=== PATIENT | female | born 1945 | race Hispanic/Latino ===

== ENCOUNTER 2018-12-05 18:41 | Emergency (ER) | payer OTHER ==
--- NOTE | 2018-12-05 19:09 | EDPHYS ---
Physician Documentation [facility] Name: Georgiana Kidd Age: 73 yrs Sex: Female : 1945 Arrival Date: 12/05/2018 Time: 18:43 Bed 18 Private MD: Gutierrez Miller ED Physician Benoit Villalpando HPI: 12/06 16:08 This 73 yrs old Female presents to ER via Ambulatory with complaints of snw Redness of Eye. 16:08 to the right eye. Onset: The symptoms/episode began/occurred suddenly, this morning. snw Duration: the symptoms are continuous. Associated signs and symptoms: Pertinent positives: None. Severity of symptoms: At their worst the symptoms were mild. The patient has not experienced similar symptoms in the past. It is unknown whether or not the patient has recently seen a physician. Historical: - Allergies: 12/05 18:46 No Known Allergies; sv - PMHx: 18:46 None; sv - PSHx: 18:46 left ankle; sv - Immunization history:: Adult Immunizations unknown. - Social history:: Smoking status: unknown. - Ebola Screening: : Patient negative for fever greater than or equal to 101.5 degrees Fahrenheit, and additional compatible Ebola Virus Disease symptoms. ROS: 12/06 16:06 Constitutional: Negative for fever, chills, and weight loss, ENT: Negative for injury, snw pain, and discharge, Neck: Negative for injury, pain, and swelling, Cardiovascular: Negative for chest pain, palpitations, and edema, Respiratory: Negative for shortness of breath, cough, wheezing, and pleuritic chest pain, Abdomen/GI: Negative for abdominal pain, nausea, vomiting, diarrhea, and constipation, Back: Negative for injury and pain, : Negative for injury, bleeding, discharge, and swelling, MS/Extremity: Negative for injury and deformity, Skin: Negative for injury, rash, and discoloration, Neuro: Negative for headache, weakness, numbness, tingling, and seizure. Eyes: Positive for itching, matting, redness, of the outer aspect of conjuctiva of right eye and inner aspect of conjuctiva of right eye. Exam: 12/05 19:18 Constitutional: This is a well developed, well nourished patient who is awake, alert, snw and in no acute distress. Head/Face: Normocephalic, atraumatic. ENT: Nares patent. No nasal discharge, no septal abnormalities noted. Tympanic membranes are normal and external auditory canals are clear. Oropharynx with no redness, swelling, or masses, exudates, or evidence of obstruction, uvula midline. Mucous membranes moist. Neck: Trachea midline, no thyromegaly or masses palpated, and no cervical lymphadenopathy. Supple, full range of motion without nuchal rigidity, or vertebral point tenderness. No Meningismus. Chest/axilla: Normal chest wall appearance and motion. Nontender with no deformity. No lesions are appreciated. Cardiovascular: Regular rate and rhythm with a normal S1 and S2. No gallops, murmurs, or rubs. Normal PMI, no JVD. No pulse deficits. Respiratory: Lungs have equal breath sounds bilaterally, clear to auscultation and percussion. No rales, rhonchi or wheezes noted. No increased work of breathing, no retractions or nasal flaring. Abdomen/GI: Soft, non-tender, with normal bowel sounds. No distension or tympany. No guarding or rebound. No evidence of tenderness throughout. Back: No spinal tenderness. No costovertebral tenderness. Full range of motion. Skin: Warm, dry with normal turgor. Normal color with no rashes, no lesions, and no evidence of cellulitis. MS/ Extremity: Pulses equal, no cyanosis. Neurovascular intact. Full, normal range of motion. Neuro: Awake and alert, GCS 15, oriented to person, place, time, and situation. Cranial nerves II-XII grossly intact. Motor strength 5/5 in all extremities. Sensory grossly intact. Cerebellar exam normal. Normal gait. Psych: Awake, alert, with orientation to person, place and time. Behavior, mood, and affect are within normal limits. Eyes: Periorbital structures: erythema, that is mild, on the medial canthus of right eye and lateral canthus of right eye, Pupils: no acute changes, normal size, Extraocular movements: no acute changes, Conjunctiva: injected, in the right eye, Corneas: are normal. Vital Signs: 18:46 BP 151 / 79; Pulse 70; Resp 16; Temp 97.9; Pulse Ox 97% ; Weight 58.06 kg; Height 5 ft. sv 4 in. (162.56 cm); Pain 0/10; 18:46 Body Mass Index 21.97 (58.06 kg, 162.56 cm) MDM: 18:48 Patient medically screened. snw 19:19 Data reviewed: vital signs, nurses notes. Data interpreted: Pulse oximetry: on room air snw is 97 %. Interpretation: normal. Counseling: I had a detailed discussion with the patient and/or guardian regarding: the historical points, exam findings, and any diagnostic results supporting the discharge/admit diagnosis, the presence of at least one elevated blood pressure reading (>120/80) during this emergency department visit, the need for outpatient follow up, to return to the emergency department if symptoms worsen or persist or if there are any questions or concerns that arise at home. Special discussion: Based on the history and exam findings, there is no indication for further emergent testing or inpatient evaluation. I discussed with the patient/guardian the need to see the opthamologist for further evaluation of the symptoms. Administered Medications: 19:15 Drug: Tobramycin Ointment (0.3 %) 1 inches Route: Ophthalmic; Site: right eye; jd3 19:21 Follow up: Response: Medication administered at discharge. jd3 Disposition: 12/06 08:23 Co-signature as Attending Physician, Benoit Villalpando MD I agree with the assessment and velia plan of care. Disposition: 12/05/18 19:08 Discharged to Home. Impression: Conjunctivitis. - Condition is Stable. - Discharge Instructions: Bacterial Conjunctivitis. - Prescriptions for TOBRAMYCIN OPTHALMIC OINTMENT - instill 0.5 inch by OPHTHALMIC route 3 times per day for 7 days; 1 Container. - Medication Reconciliation Form, Thank You Letter, Antibiotic Education, Prescription Opioid Use form. - Follow up: Augusta Carrillo MD; When: 1 - 2 days; Reason: Recheck today's complaints, Continuance of care, Re-evaluation by your physician. Signatures: Karol Thrasher RN RN sv Anderson, Corey, MD MD cha Therrien, Shelly, BREAST SURGEON-C BREAST SURGEON-Csnw Milo Gutierrez RN RN jd3 Corrections: (The following items were deleted from the chart) 12/05 19:21 19:08 12/05/2018 19:08 Discharged to Home. Impression: Conjunctivitis. Condition is jd3 Stable. Forms are Medication Reconciliation Form, Thank You Letter, Antibiotic Education, Prescription Opioid Use. Follow up: Augusta Carrillo; When: 1 - 2 days; Reason: Recheck today's complaints, Continuance of care, Re-evaluation by your physician. snw
--- NOTE | 2018-12-05 19:09 | ER ---
Nurse's Notes [facility] Name: Georgiana Kidd Age: 73 yrs Sex: Female : 1945 Arrival Date: 12/05/2018 Time: 18:43 Bed 18 Private MD: Gutierrez Miller Diagnosis: Conjunctivitis Presentation: 12/05 18:45 Presenting complaint: Patient states: right eye redness, itching, "white stuff coming sv out" started this morning. Transition of care: patient was not received from another setting of care. Onset of symptoms was December 05, 2018. Care prior to arrival: None. 18:45 Method Of Arrival: Ambulatory sv 18:45 Acuity: TREVIN 5 sv 19:10 Risk Assessment: Do you want to hurt yourself or someone else? Patient reports no jd3 desire to harm self or others. Initial Sepsis Screen: Does the patient meet any 2 criteria? No. Patient's initial sepsis screen is negative. Does the patient have a suspected source of infection? No. Patient's initial sepsis screen is negative. Historical: - Allergies: 18:46 No Known Allergies; sv - PMHx: 18:46 None; sv - PSHx: 18:46 left ankle; sv - Immunization history:: Adult Immunizations unknown. - Social history:: Smoking status: unknown. - Ebola Screening: : Patient negative for fever greater than or equal to 101.5 degrees Fahrenheit, and additional compatible Ebola Virus Disease symptoms. Screenin:09 Abuse screen: Denies threats or abuse. Nutritional screening: No deficits noted. jd3 Tuberculosis screening: No symptoms or risk factors identified. Fall Risk Ambulatory Aid- None/Bed Rest/Nurse Assist (0 pts). Gait- Normal/Bed Rest/Wheelchair (0 pts) Mental Status- Oriented to own ability (0 pts). Total Montoya Fall Scale indicates No Risk (0-24 pts). Assessment: 19:07 General: Appears in no apparent distress. uncomfortable, Behavior is calm, cooperative, jd3 appropriate for age. Pain: Complains of pain in right eye Quality of pain is described as aching. Neuro: Level of Consciousness is awake, alert, obeys commands, Oriented to person, place, time, situation, Appropriate for age. Cardiovascular: Denies chest pain, Capillary refill < 3 seconds Patient's skin is warm and dry. Respiratory: Airway is patent Respiratory effort is even, unlabored, Respiratory pattern is regular, symmetrical, Denies shortness of breath. GI: No signs and/or symptoms were reported involving the gastrointestinal system. : No signs and/or symptoms were reported regarding the genitourinary system. EENT: Eyes redness noted to right eye.. Reports itching to right eye.. Derm: Skin is intact, Skin is dry, Skin is normal, Skin temperature is warm. Musculoskeletal: Circulation, motion, and sensation intact. Range of motion: intact in all extremities. Vital Signs: 18:46 BP 151 / 79; Pulse 70; Resp 16; Temp 97.9; Pulse Ox 97% ; Weight 58.06 kg; Height 5 ft. sv 4 in. (162.56 cm); Pain 0/10; 18:46 Body Mass Index 21.97 (58.06 kg, 162.56 cm) sv ED Course: 18:43 Patient arrived in ED. mr 18:44 Gutierrez Miller MD is Private Physician. mr 18:45 Triage completed. sv 18:46 Arm band placed on. sv 18:47 [facility]dal[facility]uelas [facility]C [facility]. snw 18:47 Benoit Villalpando MD is Attending Physician. snw 19:07 Milo Gutierrez RN is Primary Nurse. jd3 19:08 Augusta Carrillo MD is Referral Physician. snw 19:10 Patient has correct armband on for positive identification. Bed in low position. Call jd3 light in reach. Side rails up X 1. Adult w/ patient. 19:20 No provider procedures requiring assistance completed. Patient did not have IV access jd3 during this emergency room visit. Administered Medications: 19:15 Drug: Tobramycin Ointment (0.3 %) 1 inches Route: Ophthalmic; Site: right eye; jd3 19:21 Follow up: Response: Medication administered at discharge. jd3 Outcome: 19:08 Discharge ordered by . snw 19:20 Discharged to home ambulatory, with family. jd3 19:20 Condition: stable 19:20 Discharge instructions given to patient, family, Instructed on discharge instructions, follow up and referral plans. medication usage, Demonstrated understanding of instructions, follow-up care, medications, Prescriptions given X 1. 19:21 Patient left the ED. jd3 Signatures: Karol Thrasher, RN RN Magdalena Jones, SEAFOOD PACKER-C SEAFOOD PACKER-Csnw Peña, Pari mr Milo Gutierrez, RUPA GOODE jd3
[2018-12-05] MEDS ORDERED: TOBRAMYCIN SULF 0.3% OPTH OINT ONE (19:24)
== END 2018-12-05 19:21 | disposition home or self-care (01) ==
LOC: ER 18:41
DX: H10.9 Unspecified conjunctivitis (principal)
CPT/HCPCS: 99283

== ENCOUNTER 2022-05-03 07:39 | Day surgery (SDC) | payer OTHER ==
[2022-04-28 11:57] LABS: Hematocrit 39.6 % (36.0-45.0); MCV 88.5 fL (80-100); MPV 8.1 fL (7.6-11.3); RBC Red Blood Cell Count 4.48 M/uL (3.86-4.86)
[2022-04-28 12:09] LABS: Potassium 3.9 mmol/L (3.5-5.1)
[2022-04-28 12:28] LABS: Protime INR 1.17
[2022-04-28 15:23] LABS: Urine Clarity Clear (Clear); Urine Color Yellow (Yellow)
[2022-04-28 15:24] LABS: Urine Bilirubin Negative (Negative); Urine Blood Negative (Negative); Urine Glucose Negative (Negative); Urine Protein Negative (Negative)
[2022-04-29 14:18] LABS: SARS-CoV-2 Antigen Rapid Res Negative (Negative)
[~2022-05-03 07:39] MED LIST: CEFAZOLIN SODIUM 1 GM/VIAL ONE; FENTANYL CITR 100 MCG/2 ML ONE; LIDOCAINE 1% MPF 5 ML VIAL ONE; MIDAZOLAM HCL 2 MG/2 ML INJ ONE; NA CHLORIDE 0.9% 100 ML ONE; ONDANSETRON 4 MG/2 ML VIAL ONE; ROCURONIUM 50 MG/5 ML VIAL IV ONE; propofoL 200 MG/20 ML VIAL IV ONE
[2022-05-03] MEDS ORDERED: CEFAZOLIN 2 GM IN 0.9% NACL 2 GM/100 ML BAG ONE (08:06)
[2022-05-03] MEDS ORDERED: Ringers Lactate 1,000 ML IV ONE (08:06)
[2022-05-03] MEDS ORDERED: SCOPOLAMINE HYDROBROMIDE PATCH TD ONE (08:07)
[2022-05-03] MEDS: VASOPRESSIN 20 UNIT/ML VIAL ONE ×2 (08:22→09:33)
[2022-05-03] MEDS ORDERED: ONDANSETRON 4 MG/2 ML VIAL IV PRN (09:23)
[2022-05-03] MEDS ORDERED: PROMETHAZINE INJ 25 MG/ML AMP IV PRN (09:23)
[2022-05-03] MEDS ORDERED: MORPHINE 2 MG/ML SYR IV PRN (09:23)
[2022-05-03] MEDS ORDERED: Phenylephrine HCl 10 MG/ML 1 ML VIAL ONE (09:29)
[2022-05-03] MEDS ORDERED: dexAMETHasone 4 MG/ML VIAL ONE (09:29)
[2022-05-03] MEDS ORDERED: KETOROLAC 30 MG/ML INJ ONE (09:29)
[2022-05-03] MEDS ORDERED: ONDANSETRON 4 MG/2 ML VIAL ONE (09:29)
[2022-05-03] MEDS ORDERED: Ringers Lactate 1,000 ML IV SCH (10:00)
[2022-05-03] MEDS ORDERED: GLYCOPYRROLATE 0.2 MG/ML SYR ONE (10:12)
[2022-05-03] MEDS ORDERED: EPHEDRINE SULF 50 MG/ML VIAL ONE (10:13)
[2022-05-03] MEDS ORDERED: VECURONIUM 10 MG/VIAL IV ONE (11:02)
[2022-05-03] MEDS ORDERED: SUGAMMADEX SODIUM 200 MG/2 ML VIAL IV ONE (12:12)
--- NOTE | 2022-05-03 13:10 | P.BOP ---
Preoperative diagnosis: stage 3 uterovaginal prolapse, post defect, ROYAL Postoperative diagnosis: same+ post enterocele Primary procedure: B/L SSLF cervico-colpopexy+Ant wall biologic graft augmented repair Secondary procedure: posterior wall+enterocele repairs, perineorrhaphy, TO MUS cysto Data Entry Analyst: Paula Khan Estimated blood loss: 100 Specimen: none Findings: 0/+4/+5/5/mod/7/0/0/+1, post enterocele Anesthesia: General Complications: None Drain(s): Urinary catheter Implants: RAMÓN sling, coloplast biologic graft Transferred to: Recovery Room Condition: Good
[2022-05-03] MEDS: HYDROMORPHONE HCL 1 MG/ML INJ ONE ×2 (13:16→13:28)
[2022-05-03 14:37] VITALS: BMI 23.0
[2022-05-04] MEDS: ACETAMINOPHEN 500 MG TAB PO PRN ×2 (02:20→07:52)
[2022-05-04 06:24] LABS: Absolute Lymphocytes (CBC) 1.9 K/uL (0.7-4.9); Hematocrit 30.4 % (36.0-45.0); Lymphocytes % 16.3 % (15.3-44.8); MCV 90.4 fL (80-100); RBC Red Blood Cell Count 3.36 M/uL (3.86-4.86)
[2022-05-04 07:59] VITALS: BP 122/59
[2022-05-04] MEDS ORDERED: AMLODIPINE 5 MG TAB PO SCH (09:00)
[2022-05-04] MEDS ORDERED: VALSARTAN PO SCH (09:00)
[2022-05-04] MEDS ORDERED: [UNRECOGNIZED DRUG - OTHER] PO SCH (09:00)
[2022-05-04] MEDS ORDERED: HYDROCHLOROTHIAZIDE PO SCH (09:00)
[2022-05-04] MEDS ORDERED: VITAMIN D 5,000 UNIT CAP PO SCH (09:00)
[2022-05-04] MEDS ORDERED: VALSARTAN 160 MG TAB PO SCH (09:00)
[2022-05-04] MEDS ORDERED: hydroCHLOROthiazide 12.5 MG CAP PO SCH (09:00)
[2022-05-04 11:15] VITALS: TEMP 97.6; O2SAT 99
--- NOTE | 2022-05-05 07:04 | OP ---
Date of Procedure: 05/03/2022 Surgeon: Kate Mcneil MD Pre Fabricator: Paula Keita. Preoperative Diagnoses: Stage III uterovaginal prolapse, posterior defect, and stress urinary incont inence. Postoperative Diagnoses: Stage IV uterovaginal prolapse, posterior enterocele, posterior wall defect , and stress urinary incontinence. Procedures Performed: Bilateral sacrospinous ligament fixation, cervical colpopexy, anterior wall re pair with biologic graft augmentation, posterior wall and posterior enterocele repair, perineorrhaphy , mid urethral sling, transobturator, and cystoscopy. Ebl: 100. Specimens: None. Pop Q 0+ 4+ 55, moderate 700+ 1 posterior enterocele seen. Cystoscopy negative. Strong jets of urin e from both ureteric orifices and no evidence of any trauma or foreign body. Anesthesia: General endotracheal. Complications: No complications. Drains: Liu catheter. Implants: RAMÓN sling and Coloplast biologic graft. Disposition: Transferred to the recovery room in stable condition. Indications: The patient is a 76-year-old female with symptomatic vaginal prolapse and voiding dysfu nction. She was evaluated last year and this year again for symptomatic prolapse. I have discussed about cystoscopy. Urodynamics were all performed and we discussed all the alternatives including pes eyad, observation with Kegel, which she had already done and her prolapse had progressed and become s ignificantly more symptomatic despite that and surgical repair including a hysterectomy with a sacral colpopexy and alternatively vaginal repair with a colpopexy and anterior-posterior repairs using a b iologic graft. After understanding all the benefits and risks and alternatives of all these procedur e. She wanted to proceed with a vaginal repair. On transvaginal ultrasound, the uterus and ovaries had no other pathology. So, uterine preservation as there was no pathology discussed and the patient consented. Description Of Procedure: She was brought to the OR, re-consented, her and her had questions were answered including her son to their satisfaction. Then, she was taken back to OR and placed in supine fashion on the operating table. 2 g of Ancef was given. SCDs were placed. After anesthesia was given, she was placed in a dorsal lithotomy position. Vulva, vagina, perineum, and medial thigh s were all prepped and draped in a sterile fashion. Liu was placed to drain the bladder and retrac milana superiorly after being clamped. The Pop Q was done as above in the anterior wall from the UVJ al l the way to the level of the cervix, was marked the midline, and dilute vasopressin was injected 30 cc. The midline incision was made. Dissection was performed to separate the bladder and the underly ing connective tissue from the overlying epithelial tissue. After entering the plane and getting int o the paravaginal space on the right and the left, pararectal space was accessed. The left side was much easier and much clearer dissection to find the sacrospinous ligament and clean it up. On the le ft paravaginal wall as well, similar dissection was performed on the right side. There was very mini mal tissue that was still left at the level of the spine despite clearing, but the sacrospinous ligam ent was able to be well palpated and paravaginal white line was also cleaned up. Using the Capio, dissection was carried all the way to the level of the cervix proximally and distall y to the UVJ. Two Prolene sutures were taken, 1 on each side mid ligament were placed, 1 on each either sides, then PDS on the Capio was taken and placed on the white line at least 2.5 cm away from the ischial spine on the right side and 2 cm away from the left side. Three Prolene sutures were placed on the cervix, 1 in the midline and 1 on either sides and PDS sutures, 1 in the center, either on midline at the di stal UVJ onto remnants of the connective tissue present over here. These were all held on clamps. T hen, the biologic graft was fashioned, it was an 8.6 graft and was cut to 8 x 6 x 5, which was the di stal and into a trapezoid. This was soaked according to package directions and brought in. The prox imal attachment to the cervix was stitched with a House needle and then tied down with the Prolene pond tures 2-0 and then the PDS sutures at the distal center were attached the graft. Then, the sacrospin ous sutures were attached with using a tevin stitch and then the PDS lateral wall sutures were attac hed to the graft after pulling the Prolene suture to the sacrospinous seeing where it would be in [place] ropriate location for placement of the PDS on the graft. These were passed and held. Then, the ante rior vaginal wall was started with the closure by using a 2-0 Vicryl suture at proximal end near the cervix bringing the cervical tissue back together and then the vaginal epithelium. After closure abo ut 2 cm then, we went on to tie the sacrospinous sutures and the right paravaginal suture. On the le ft, the paravaginal suture was cut, so I had to replace the PDS suture on the white line and back ont o the graft, this was tied down. There was excellent lift and support of the bladder and the apex on the lateral wall. The vaginal epithelium was slightly trimmed about half a centimeter on each side only in the middle mid segment of the bladder and this was closed with the help of 2-0 Vicryl that wa s started already proximally all the way to the end. Mid urethral area was picked up with 2 Allis clamps, injected with dilute vasopressin, and 1.5 cm inc ision was made in the mid urethral area. Going onto the fascial layer, the track was created towards the ipsilateral obturator space hugging the inferior pubic ramus at a 45-degree angle. The track wa s expanded. Similar dissection performed on the left side as well. Then, the wing guide was taken, sling was loaded and passed out after it was soaked according to package directions. At the exit poi nt was 2 cm lateral to the groin fold centimeter above the level of the transverse line drawn at the level of the external meatus avoiding the adductor longus tendon. The spike exit points were marked already and incised with a 15 blade and then the mesh was retrieved on both sides in a similar fashion. Tensioning was performed with an Allis clamp in the center to b ring up a loop of the mesh and allowing it to lie right against the urethra and then the mesh was onc e it was tensioned properly set flush with the skin on both groins. The Allis clamp was opened up and let the mesh lay where it was supposed to, which was tension-free a nd optimally opened up without any cord like rolling. After thorough irrigation, the closure was performed with the help of a 3-0 Vicryl in a continuous ru nning fashion. Liu was removed. Cystoscopy was performed. Normal jets of urine from both ureteri c orifices. No evidence of any trauma or foreign body from either the areas of the sutures or the sl ing. The bladder was re-catheterized and retracted superiorly and attached to Liu bag. Attention was directed to the posterior repair. The remnants of hymen were picked up on both sides. It was clear that the perineal body was not intact, but there was not a perineocele. A triangular incision was placed on the perineum and then another triangular incision both bases touc lore each other at the hymen were placed on the epithelium. Then, the epithelium was deepithelialize d in both areas. Then, the underlying connective tissue was dissected on the posterior vaginal wall as well as the perineal body structures on the lateral wall and on the perineum. Then, the posterior enterocele was dissected all the way on the top, closed with the help of a 3-0 Monocryl in a pursest ring fashion. Then, reconstruction of the perineal body was done, which decreased the genital hiatus to about 3.5 cm. Interrupted 2-0 Vicryl sutures in 2 layers of 4 and 4 sutures on the deeper layer and 3 on the next superficial layer. There was excellent perineal body that was rebuilt and this was attached with 2-0 PDS to the distal posterior fascia, which was also plicated. Then, vaginal epithe lium would slightly trim to prevent dog-ear, but no further trimming was done and it was closed with the help of 2-[address] to the hymen and the 3-0 Vicryl down the subcutaneous fashion and subcuticular fashion tied down at the level of the hymen. Rectal exam was performed, was negative and the sutures of the sacrospinous were palpable, but not th rough the epithelium on the right side and on the left side much less palpable. I did not feel dary rned that there was any trauma to the rectum. Vaginal packing was done and Dermabond placed to close the skin incisions. Instrument, needle, and s ponge counts were correct at the end of the case. The patient was recovered from anesthesia and take n to PACU in stable condition. She was kept overnight for a voiding trial, and once packing and Fole y were removed as she was not able to void very well and so had a significant PVR, so she was catheterized and discharged home. She will b e back in 4 days for a voiding trial. MAE/SOCORRO Voice ID: [id number] Report ID: [id number]
[2022-05-06] MEDS ORDERED: ESTRADIOL 10 MCG VAG SCH (17:00)
== END 2022-05-04 10:45 | disposition home or self-care (01) ==
LOC: OR 07:39 → 2ND-WC 09:23 → OR 05-04 10:45
PROVIDERS: ATTEND Obstetrics & Gynecology
PROC: 0JQC0ZZ Repair Pelvic Region Subcutaneous Tissue and Fascia, Open Approach (ICD-10-PCS; 2022-05-03)
PROC: 0HQ9XZZ Repair Perineum Skin, External Approach (ICD-10-PCS; 2022-05-03)
PROC: 0TSD0ZZ Reposition Urethra, Open Approach (ICD-10-PCS; 2022-05-03)
PROC: 0USG7ZZ Reposition Vagina, Via Natural or Artificial Opening (ICD-10-PCS; principal; 2022-05-03 08:30)
DX: N81.2 Incomplete uterovaginal prolapse (principal); N95.2 Postmenopausal atrophic vaginitis; N81.6 Rectocele; E55.9 Vitamin D deficiency, unspecified; I10 Essential (primary) hypertension; N39.3 Stress incontinence (female) (male); Z20.822 Contact with and (suspected) exposure to COVID-19
CPT/HCPCS: 85025 ×2; 80048; 36415 ×3; 86900; 86850; 85610; 86901; 85730; 81003; 87811; 57282; 57250; 57288; J2704; J1100; J2550; J2370; J2250; J3010; J2270; J1170; J0690 ×2; J7120 ×3; J2405 ×3

== ENCOUNTER 2025-06-27 11:59 | Inpatient (IN) | payer OTHER ==
[2025-06-27] MEDS ORDERED: ONDANSETRON 4 MG/2 ML VIAL ONE ×3 (12:41→17:31)
[2025-06-27] MEDS ORDERED: NA CHLORIDE 0.9% 500 ML ONE (12:42)
[2025-06-27] MEDS ORDERED: FAMOTIDINE 20 MG/2 ML VIAL IV ONE (12:42)
[2025-06-27] MEDS ORDERED: FENTANYL CITR 100 MCG/2 ML ONE ×3 (12:42→16:52)
[2025-06-27 12:55] LABS: Absolute Lymphocytes (CBC) 1.5 K/uL (0.7-4.9); Hematocrit 44.2 % (36.0-45.0); Hemoglobin 14.9 g/dL (12.0-15.0); MCH 30.1 pg (27.0-35.0); MCHC 33.7 g/dL (32.0-36.0); MCV 89.4 fL (80-100); MPV 8.6 fL (7.6-11.3); Nucleated RBC Absolute Count 0.0 (0-0); Nucleated Red Blood Cells % 0.1 % (0-0); RBC Red Blood Cell Count 4.94 M/uL (3.86-4.86); White Blood Count 7.70 thou/uL (4.3-10.9)
[2025-06-27 13:02] LABS: PT Prothrombin Time 13.2 SECONDS (10-13.0); Protime INR 1.17
--- NOTE | 2025-06-27 13:13 | RAD REPORT ---
EXAM: Chest Single View HISTORY: 80 years Female ABDOMINAL DISTENTION COMPARISON: No prior exams FINDINGS: LUNGS/PLEURA: The lungs are clear. No pleural effusions or pneumothorax. No pulmonary edema. CARDIAC/MEDIASTINUM: The cardiac silhouette is within normal limits. UPPER ABDOMEN: No significant abnormality. BONES: No acute abnormality. LINES/TUBES/OTHER: N/A IMPRESSION: No evidence of acute cardiopulmonary disease.
[2025-06-27 13:15] LABS: ALT/SGPT 20.0 U/L (13-56); AST/SGOT 19.0 U/L (15-37); Albumin 3.4 g/dL (3.4-5.0); Albumin/Globulin Ratio 0.8 (1.1-1.8); Alkaline Phosphatase 68.0 U/L (45-117); Anion Gap 11.9 mEq/L (5.0-15.0); BUN Blood Urea Nitrogen 13.0 mg/dL (7-18); Bilirubin Indirect, Calculated 0.5 mg/dL (0.2-0.8); Globulin 4.4 g/dL (2.3-3.5); Glucose Level 108.0 mg/dL (74-106); Lipase 22.0 U/L (13-75); Magnesium 2.1 mg/dL (1.6-2.4); NT PRO-BNP 99.0 pg/mL (<450); Potassium 3.9 mEq/L (3.5-5.1); Troponin High Sensitivity 3.2 pg/mL (<58.9)
--- NOTE | 2025-06-27 13:46 | RAD REPORT ---
EXAMINATION: CT ABDOMEN AND PELVIS WITH CONTRAST CLINICAL INDICATION: ABD PAIN TECHNIQUE: CT abdomen and pelvis was performed, after the administration of IV contrast, as [facility]. Axial, sagittal and coronal reconstructions were obtained. One or more of the following dose reduction techniques were used: Automated exposure control, adjustment of the mA and k V according to patient size, and iterative reconstruction. Unless otherwise specified, incidental findings do not require dedicated imaging follow-up. COMPARISON: No prior exam. FINDINGS: LOWER CHEST: The visualized lung bases are clear. LIVER: Mild fatty liver is present. No focal lesion or biliary dilatation is seen. Grossly unremark able gallbladder. SPLEEN: Normal size. No focal lesion. PANCREAS: No mass, ductal dilation, or catie-pancreatic fluid. ADRENALS: Normal; no mass. KIDNEYS: Normal size and contour. No hydronephrosis. GASTROINTESTINAL TRACT: Several mildly thickened and dilated left lower quadrant small bowel loops. S mall left inguinal hernia is present containing a short segment of the small intestine without fluid or evidence of incarceration. APPENDIX: Normal appendix. LYMPH NODES: No lymphadenopathy. MUSCULOSKELETAL: Moderate compression deformity of L2, favored to be chronic but age indeterminate. ADDITIONAL FINDINGS: Small fat-containing umbilical hernia. IMPRESSION: Several mildly dilated and thickened small bowel loops in the left lower quadrant with small left ing uinal hernia containing a short segment of small intestine. This may indicate low-grade partial small bowel obstruction caused by this hernia.
--- NOTE | 2025-06-27 14:42 | EDPHYS ---
Physician Documentation [facility] Name: Georgiana Kidd Age: 80 yrs Sex: Female : 1945 Arrival Date: 06/27/2025 Time: 11:59 Bed 6 Private MD: VJ Physician Benoit Villalpando HPI: 06/27 14:32 This 80 yrs old Female presents to ER via Ambulatory with complaints of velia Abdominal Pain - LLQ, Nausea. 14:32 The patient presents to the emergency department with nausea, abdominal pain, of the velia left lower quadrant. Onset: The symptoms/episode began/occurred this morning, today. Possible causes: unknown. The symptoms are aggravated by movement, pressure, The symptoms are alleviated by nothing. remaining still. Associated signs and symptoms: Pertinent positives: abdominal pain, nausea. Severity of symptoms: At their worst the symptoms were moderate in the emergency department the symptoms are unchanged. The patient has not experienced similar symptoms in the past. Historical: - Allergies: 12:25 No Known Allergies; iw - Home Meds: 12:25 None [Active]; iw - PMHx: 12:25 None; iw - PSHx: 12:25 bladder lift; iw - Immunization history:: Adult Immunizations not up to date. - Infectious Disease History:: Denies. - Social history:: Smoking status: Patient denies any tobacco usage or history of. ROS: 14:33 Constitutional: Negative for fever, chills, and weight loss, Eyes: Negative for injury, velia pain, redness, and discharge, ENT: Negative for injury, pain, and discharge, Neck: Negative for injury, pain, and swelling, Cardiovascular: Negative for chest pain, palpitations, and edema, Respiratory: Negative for shortness of breath, cough, wheezing, and pleuritic chest pain, Back: Negative for injury and pain, : Negative for injury, bleeding, discharge, and swelling, MS/Extremity: Negative for injury and deformity, Skin: Negative for injury, rash, and discoloration, Neuro: Negative for headache, weakness, numbness, tingling, and seizure, Psych: Negative for depression, anxiety, suicide ideation, homicidal ideation, and hallucinations, Allergy/Immunology: Negative for hives, rash, and allergies, Endocrine: Negative for neck swelling, polydipsia, polyuria, polyphagia, and marked weight changes, Hematologic/Lymphatic: Negative for swollen nodes, abnormal bleeding, and unusual bruising, 14:33 Abdomen/GI: Positive for abdominal pain, nausea, of the left lower quadrant, Exam: 14:33 Constitutional: This is a well developed, well nourished patient who is awake, alert, velia and in no acute distress. Head/Face: Normocephalic, atraumatic. Eyes: Pupils equal round and reactive to light, extra-ocular motions intact. Lids and lashes normal. Conjunctiva and sclera are non-icteric and not injected. Cornea within normal limits. Periorbital areas with no swelling, redness, or edema. ENT: Nares patent. No nasal discharge, no septal abnormalities noted. Tympanic membranes are normal and external auditory canals are clear. Oropharynx with no redness, swelling, or masses, exudates, or evidence of obstruction, uvula midline. Mucous membranes moist. Neck: Trachea midline, no thyromegaly or masses palpated, and no cervical lymphadenopathy. Supple, full range of motion without nuchal rigidity, or vertebral point tenderness. No Meningismus. Chest/axilla: Normal chest wall appearance and motion. Nontender with no deformity. No lesions are appreciated. Cardiovascular: Regular rate and rhythm with a normal S1 and S2. No gallops, murmurs, or rubs. Normal PMI, no JVD. No pulse deficits. Respiratory: Lungs have equal breath sounds bilaterally, clear to auscultation and percussion. No rales, rhonchi or wheezes noted. No increased work of breathing, no retractions or nasal flaring. Back: No spinal tenderness. No costovertebral tenderness. Full range of motion. Female : Normal external genitalia. Skin: Warm, dry with normal turgor. Normal color with no rashes, no lesions, and no evidence of cellulitis. MS/ Extremity: Pulses equal, no cyanosis. Neurovascular intact. Full, normal range of motion., bilateral aka Neuro: Awake and alert, GCS 15, oriented to person, place, time, and situation. Cranial nerves II-XII grossly intact. Motor strength 5/5 in all extremities. Sensory grossly intact. Cerebellar exam normal. Normal gait. Psych: Awake, alert, with orientation to person, place and time. Behavior, mood, and affect are within normal limits. 14:33 ECG was reviewed by the Attending Physician. Vital Signs: 12:24 BP 167 / 83; Pulse 65; Resp 16; Pulse Ox 98% ; Weight 54.88 kg; Height 5 ft. 3 in. ; iw Pain 8/10; 12:48 BP 175 / 83; Pulse 72; Resp 16; Pulse Ox 99% on R/A; ar8 14:30 BP 158 / 83; Pulse 62; Resp 16 S; Pulse Ox 99% on R/A; ar8 15:34 BP 144 / 85; Pulse 63; Resp 19; Pulse Ox 98% on R/A; iw 16:00 BP 96 / 77; Pulse 61; Resp 14; Pulse Ox 98% on R/A; ar8 16:15 Pain 1/10; ar8 12:24 Body Mass Index 21.43 (54.88 kg, 160.02 cm) iw 12:24 Pain Scale: Adult iw 16:15 Pain Scale: Adult ar8 MDM: 12:14 Medical Screening Exam initiated velia 14:34 Differential diagnosis: Nonspecific abd pain, gastritis, diverticulitis, viral velia gastroenteritis, gastroenteritis, bowel obstruction, diverticulitis, Herpes Zoster, non-specific abd pain, pancreatitis, Peptic Ulcer Disease, Pyelonephritis, Ureterolithiasis, urinary tract infection. Data reviewed: vital signs, nurses notes, lab test result(s), EKG, radiologic studies, CT scan, plain films. Consideration of Admission/Observation Patient was admitted/placed on observation. Escalation of care including admission/observation considered. I considered the following discharge prescriptions or medication management in the emergency department Medications were administered in the Emergency Department. See MAR. Independent interpretation of the following test(s) in the Emergency Department EKG: See my EKG interpretation above. Test considered but Not performed: Ultrasound NO ABD USG. Care significantly affected by the following chronic conditions: DIOGENES HX. 06/27 12:16 Order name: Basic Metabolic Panel; Complete Time: 14:19 [facility] 06/27 12:16 Order name: CBC with Diff; Complete Time: 14:19 velia 06/27 12:16 Order name: LFT's; Complete Time: 14:19 velia 06/27 12:16 Order name: Magnesium; Complete Time: 14:19 velia 06/27 12:16 Order name: NT PRO-BNP; Complete Time: 14:19 [facility] 06/27 12:16 Order name: PT-INR; Complete Time: 14:19 velia 06/27 12:16 Order name: Troponin HS; Complete Time: 14:19 velia 06/27 12:16 Order name: Lipase; Complete Time: 14:19 06/27 12:16 Order name: UA Rfx Jorge Cult if indicated 06/27 16:27 Order name: CBC with Automated Diff EDMS 06/27 16:27 Order name: CBC with Automated Diff EDMS 06/27 16:27 Order name: CBC with Automated Diff EDMS 06/27 16:27 Order name: Comprehensive Metabolic Panel EDMS 06/27 16:27 Order name: Comprehensive Metabolic Panel EDMS 06/27 16:27 Order name: Comprehensive Metabolic Panel EDMS 06/27 16:27 Order name: Magnesium EDMS 06/27 16:27 Order name: Magnesium EDMS 06/27 12:16 Order name: XRAY Chest (1 view); Complete Time: 14:19 velia 06/27 12:16 Order name: CT Abd/Pelvis - IV Contrast Only; Complete Time: 14:19 [facility] 06/27 12:16 Order name: EKG; Complete Time: 12:16 velia 06/27 12:16 Order name: Cardiac monitoring; Complete Time: 13:45 [facility] 06/27 12:16 Order name: EKG - Nurse/Tech; Complete Time: 13:45 [facility] 06/27 12:16 Order name: IV Saline Lock; Complete Time: 13:45 [facility] 06/27 12:16 Order name: Labs collected and sent; Complete Time: 13:45 [facility] 06/27 12:16 Order name: O2 Per Protocol; Complete Time: 13:45 [facility] 06/27 12:16 Order name: O2 Sat Monitoring; Complete Time: 13:45 [facility] 06/27 14:32 Order name: NPO; Complete Time: 15:03 [facility] EC:33 Rate is 65 beats/min. Rhythm is regular. QRS [place] is Normal. NC interval is normal. QRS velia interval is normal. QT interval is normal. No Q waves. T waves are Normal. No ST changes noted. Clinical impression: NSR w/ Non-specific ST/T Changes and No evidence of ischemia. Interpreted by me. Reviewed by me. Administered Medications: 12:50 Drug: Famotidine IVP 20 mg IVP once; dilute with 10 mL 0.9% NaCl; give over 2 minutes ar8 Route: IVP; Site: right antecubital; 13:30 Follow up: Response: No adverse reaction ar8 12:50 Drug: NS 0.9% IV 500 ml 500 ml IV at 1 bolus once; to be given as a bolus over 30 ar8 minutes Volume: 500 ml; Route: IV; Rate: 1 bolus; Site: right antecubital; 13:30 Follow up: Response: No adverse reaction; IV Status: Completed infusion; IV Intake: ar8 500ml 12:51 Not Given (Patient Refused): fentanyl (pf)25 mcg IVP once ar8 12:52 Not Given (Patient Refused): ondansetron 4 mg IVP once; over 2 minutes ar8 15:15 Drug: Piperacillin-Tazobactam IVPB 3.375 grams IVPB once over 60 mins; (mix in NS 100 ar8 mL) Route: IVPB; Infused Over: 60 mins; Site: right antecubital; 15:51 Follow up: Response: No adverse reaction; IV Status: Completed infusion; IV Intake: db 100ml 15:15 Drug: NS 0.9% IV 1000 ml IV at 125 ml/hr once Route: IV; Rate: 125 ml/hr; Site: right ar8 antecubital; 16:30 Follow up: Response: No adverse reaction; IV Status: IV converted to saline lock; IV ar8 Intake: 136ml 15:38 Drug: fentaNYL (PF) IVP 25 mcg IVP once Route: IVP; Site: right antecubital; db 16:15 Follow up: Pain 1/10 Adult; Response: No adverse reaction; Pain is decreased ar8 15:38 Drug: Ondansetron IVP 4 mg IVP once; over 2 minutes Route: IVP; Site: right antecubital;db 16:29 Follow up: Response: No adverse reaction; Nausea is decreased ar8 16:29 Not Given (Patient Refused): fentanyl (pf)25 mcg IVP once ar8 Disposition Summary: 06/27/25 14:41 Hospitalization Ordered Notes: Hospitalization Status: Inpatient Admission velia Provider: Antonio Romo cha Location: Telemetry/MedSurg (Inpatient) velia Condition: Stable velia Problem: new velia Symptoms: are unchanged velia Bed/Room Type: Standard velia Room Assignment: velia Diagnosis - Abdominal tenderness velia - Unilateral inguinal hernia, with obstruction, without gangrene, not specified as velia recurrent - Nausea velia - Other and unspecified intestinal obstruction - LEFT INCARCERATED INGUINAL HERNIA velia Forms: - Medication Reconciliation Form velia - SBAR form velia - Leadership Thank You Letter velia Critical care time excluding procedures: 15:48 Critical care time: Bedside Care: 20 minutes, Consultation: 10 minutes, Family velia Intervention: 5 minutes. Total time: 35 minutes Signatures: Dispatcher [employer] EDBenoit Mehta MD MD cha Williams, Irene, RN RN iw Benton, Danielle, RN RN db Rodriguez, Andrea, RN RN ar8
--- NOTE | 2025-06-27 14:42 | ER ---
Nurse's Notes [facility] Name: Georgiana Kidd Age: 80 yrs Sex: Female : 1945 Arrival Date: 06/27/2025 Time: 11:59 Bed 6 Private MD: Diagnosis: Abdominal tenderness;Unilateral inguinal hernia, with obstruction, without gangrene, not specified as recurrent;Nausea;Other and unspecified intestinal obstruction-LEFT INCARCERATED INGUINAL HERNIA Presentation: 06/27 12:24 Chief complaint: Patient states: LLQ pain X 1 hour, no vomiting, no diarrhea, feels iw like a bad cramp. Coronavirus screen: At this time, the client does not indicate any symptoms associated with coronavirus-19. Ebola Screen: No symptoms or risks identified at this time. Initial Sepsis Screen: Does the patient meet any 2 criteria? No. Patient's initial sepsis screen is negative. Does the patient have a suspected source of infection? No. Patient's initial sepsis screen is negative. Risk Assessment: Do you want to hurt yourself or someone else? Patient reports no desire to harm self or others. Onset of symptoms was June 27, 2025. 12:24 Method Of Arrival: Ambulatory iw 12:24 Acuity: TREVIN 3 iw Historical: - Allergies: 12:25 No Known Allergies; iw - Home Meds: 12:25 None [Active]; iw - PMHx: 12:25 None; iw - PSHx: 12:25 bladder lift; iw - Immunization history:: Adult Immunizations not up to date. - Infectious Disease History:: Denies. - Social history:: Smoking status: Patient denies any tobacco usage or history of. Screenin:48 [facility] [place] ED Fall Risk Assessment (Adult) History of falling in the last 3 months, ar8 including since admission No falls in past 3 months (0 pts) Confusion or Disorientation No (0 pts) Intoxicated or Sedated No (0 pts) Impaired Gait No (0 pts) Mobility Assist Device Used No (0 pt) Altered Elimination No (0 pt) Score/Fall Risk Level 0 - 2 = Low Risk Oriented to surroundings, Maintained a safe environment. Abuse screen: Denies threats or abuse. Nutritional screening: No deficits noted. Tuberculosis screening: No symptoms or risk factors identified. Assessment: 12:50 General: Appears in no apparent distress. Behavior is calm, cooperative. Pain: ar8 Complains of pain in left lower quadrant Quality of pain is described as crampy. 12:50 Neuro: Level of Consciousness is awake, alert, obeys commands, Oriented to person, ar8 place, time, situation. Cardiovascular: No deficits noted. Respiratory: Airway is patent Respiratory effort is even, unlabored, Respiratory pattern is regular, symmetrical. GI: Abdomen is flat, Abd is soft Abdomen is tender to palpation in left lower quadrant. : No signs and/or symptoms were reported regarding the genitourinary system. EENT: No signs and/or symptoms were reported regarding the EENT system. Derm: No signs and/or symptoms reported regarding the dermatologic system. 15:34 Reassessment: Patient appears in no apparent distress at this time. Dr. Grey at iw bedside to speak with pt and family. Vital Signs: 12:24 BP 167 / 83; Pulse 65; Resp 16; Pulse Ox 98% ; Weight 54.88 kg; Height 5 ft. 3 in. ; iw Pain 8/10; 12:48 BP 175 / 83; Pulse 72; Resp 16; Pulse Ox 99% on R/A; ar8 14:30 BP 158 / 83; Pulse 62; Resp 16 S; Pulse Ox 99% on R/A; ar8 15:34 BP 144 / 85; Pulse 63; Resp 19; Pulse Ox 98% on R/A; iw 16:00 BP 96 / 77; Pulse 61; Resp 14; Pulse Ox 98% on R/A; ar8 16:15 Pain 1/10; ar8 12:24 Body Mass Index 21.43 (54.88 kg, 160.02 cm) iw 12:24 Pain Scale: Adult iw 16:15 Pain Scale: Adult ar8 ED Course: 12:14 Patient arrived in ED. cj3 12:14 Benoit Villalpando MD is Attending Physician. velia 12:25 Triage completed. iw 12:26 Arm band placed on. iw 12:37 Harley Wilkinson, RUPA is Primary Nurse. ar8 12:48 Bed in low position. Call light in reach. Side rails up X2. Provided Education on: plan ar8 of care. 12:48 No provider procedures requiring assistance completed. ar8 13:01 XRAY Chest (1 view) In Process Unspecified. EDMS 13:07 Inserted saline lock: 20 gauge in right antecubital area, using aseptic technique. pm7 Blood collected. Flushed with 10 mL NS. 13:[address] via stretcher. ar8 13:39 CT Abd/Pelvis - IV Contrast Only In Process Unspecified. EDMS 13:[address] Patient moved back from CT. ar8 14:40 Antonio Romo MD is Hospitalizing Provider. velia 16:30 Patient admitted, IV remains in place. ar8 16:33 UA Rfx Jorge Cult if indicated Sent. ar8 Administered Medications: 12:50 Drug: Famotidine IVP 20 mg IVP once; dilute with 10 mL 0.9% NaCl; give over 2 minutes ar8 Route: IVP; Site: right antecubital; 13:30 Follow up: Response: No adverse reaction ar8 12:50 Drug: NS 0.9% IV 500 ml 500 ml IV at 1 bolus once; to be given as a bolus over 30 ar8 minutes Volume: 500 ml; Route: IV; Rate: 1 bolus; Site: right antecubital; 13:30 Follow up: Response: No adverse reaction; IV Status: Completed infusion; IV Intake: ar8 500ml 12:51 Not Given (Patient Refused): fentanyl (pf)25 mcg IVP once ar8 12:52 Not Given (Patient Refused): ondansetron 4 mg IVP once; over 2 minutes ar8 15:15 Drug: Piperacillin-Tazobactam IVPB 3.375 grams IVPB once over 60 mins; (mix in NS 100 ar8 mL) Route: IVPB; Infused Over: 60 mins; Site: right antecubital; 15:51 Follow up: Response: No adverse reaction; IV Status: Completed infusion; IV Intake: db 100ml 15:15 Drug: NS 0.9% IV 1000 ml IV at 125 ml/hr once Route: IV; Rate: 125 ml/hr; Site: right ar8 antecubital; 16:30 Follow up: Response: No adverse reaction; IV Status: IV converted to saline lock; IV ar8 Intake: 136ml 15:38 Drug: fentaNYL (PF) IVP 25 mcg IVP once Route: IVP; Site: right antecubital; db 16:15 Follow up: Pain / Adult; Response: No adverse reaction; Pain is decreased ar8 15:38 Drug: Ondansetron IVP 4 mg IVP once; over 2 minutes Route: IVP; Site: right antecubital;db 16:29 Follow up: Response: No adverse reaction; Nausea is decreased ar8 16:29 Not Given (Patient Refused): fentanyl (pf)25 mcg IVP once ar8 Medication: 12:48 VIS not applicable for this client. ar8 Intake: 13:30 IV: 500ml; Total: 500ml. ar8 15:51 IV: 100ml; Total: 600ml. db 16:30 IV: 136ml; Total: 736ml. ar8 Outcome: 14:41 Decision to Hospitalize by Provider. velia 16:30 Admitted to OR accompanied by nurse, via wheelchair, with chart, ar8 16:30 Condition: stable 16:30 Discharge instructions given to reason for admission. ar8 16:36 Patient left the ED. ar8 Signatures: Dispatcher [employer] EDAL Benoit Villalpando MD MD cha Williams, Irene, RN RN iw Benton, Danielle, RN RN db Johnson, Celeste cj3 Harley Wilkisnon RN RN ar8 Susan Abbott pm7
[2025-06-27] MEDS ORDERED: NA CHLORIDE 0.9% 100 ML ONE (14:49)
[2025-06-27] MEDS ORDERED: PIPERACIL/TAZO 3.375 GM VIAL IV ONE (14:50)
[2025-06-27] MEDS ORDERED: NA CHLORIDE 0.9% 1,000 ML ONE (14:50)
[2025-06-27] MEDS ORDERED: ONDANSETRON 4 MG/2 ML VIAL IV PRN (16:23)
[2025-06-27] MEDS: LIDOCAINE HCL/EPINEPHRINE 20 ML MDV ONE (16:30)
[2025-06-27] MEDS ORDERED: MORPHINE 2 MG/ML SYR IV PRN (16:30)
[2025-06-27 16:39] LABS: Sqamous Epithelial <5 /HPF (None Seen); Urine Crystals Unidentified Few /HPF (None Seen); Urine Culture Reflex Order NOT NEEDED; Urine Microscopic Reflex YN ORDER UMIC
--- NOTE | 2025-06-27 16:50 | P.HP ---
Certification for Inpatient Patient admitted to: Inpatient With expected LOS: >2 Midnights Patient will require the following post-hospital care: None Practitioner: I am a practitioner with admitting privileges, knowledge of patient current condition, hospital course, and medical plan of care. Services: Services provided to patient in accordance with Admission requirements found in Title 42 Section 412.3 of the Code of Federal Regulations Patient History Date of Service: 06/27/25 Reason for admission: Abdominal pain/hernia History of Present Illness: Patient is an 80-year-old female with past medical history of hypertension (currently controlled without medications) and pre-diabetes who presents to the ED with sharp left lower quadrant pain accompanied by nausea x 1 day. Patient reports that as she was walking around at home she felt a sudden sharp pains in her stomach and when she went to sit down it did not go away. ED workup included CT abdomen pelvis with contrast which showed Several mildly dilated and thickened small bowel loops in the left lower quadrant with small left inguinal hernia containing a short segment of small intestine. This may indicate low- grade partial small bowel obstruction caused by this hernia. Surgery was consulted and patient admitted for surgical intervention of hernia at this time Allergies No Known Allergies Allergy (Verified 05/03/22 08:18) Home Medications: Amlodipine Besylate 5 mg PO DAILY 04/28/22 Cholecalciferol (Vitamin D3) [Vitamin D 5,000 Iu Cap] 5,000 unit PO DAILY 04/28/22 Estradiol [Yuvafem] 10 mcg VG SEECOM 04/28/22 Valsartan/Hydrochlorothiazide [Valsartan-Hctz 320-12.5 mg Tab] 1 tab PO DAILY 04/28/22 - Past Medical/Surgical History Diabetic: No -: HTN -: Arthritis -: Left Ankle Surgery -: Bladder Sling Surgery - Family History Father -: Cancer Notes: Prostate Cancer Mother -: Diabetes - Social History Alcohol use: No CD- Drugs: No Caffeine use: Yes Place of Residence: Home Review of Systems Gastrointestinal: Nausea, Abdominal Pain Physical Examination - Physical Exam General: Alert, In no apparent distress HEENT: Atraumatic, PERRLA, Mucous membr. moist/pink, EOMI, Sclerae nonicteric Neck: Supple, 2+ carotid pulse no bruit, No LAD, Without JVD or thyroid abnormality Cardiovascular: Regular rate/rhythm, Normal S1 S2 Capillary refill: <2 Seconds Gastrointestinal: Hypoactive, No ascites, Tenderness, Rebound Musculoskeletal: No tenderness Integumentary: No rashes Neurological: Normal gait, Normal speech, Normal strength at 5/5 x4 extr, Normal tone, Normal affect External genitalia: Deferred Rectal: Deferred - Studies Laboratory Data (last 24 hrs) 06/27/25 06/27/25 06/27/25 12:47 12:47 12:47 WBC 7.70 Hgb 14.9 Hct 44.2 Plt Count 212 PT 13.2 H INR 1.17 Sodium 139 Potassium 3.9 BUN 13 Creatinine 0.52 L Glucose 108 H Magnesium 2.1 Total Bilirubin 0.7 AST 19 ALT 20 Alkaline Phosphatase 68 Lipase 22 Assessment and Plan - Plan Patient is an 80-year-old female with no significant past medical history who presents to the ED with sharp left lower quadrant pain accompanied by nausea x 1 day. Abdomninal Pain Hernia - CT abdomen/pelvis: Several mildly dilated and thickened small bowel loops in the left lower quadrant with small left inguinal hernia containing a short segment of small intestine. This may indicate low- grade partial small bowel obstruction caused by this hernia. - WBC 7.70, continue to monitor CBC - Received IV fluids, Zosyn and Zofran while in the ED - Continue Zosyn for now - Surgeon Dr. Sellers consulted while in ED. Possible surgical intervention this afternoon - NPO for now - LR at 100mL/hr - Morphine 0.5mg q4h PRN for severe pain(Patient does not like to take IV pain meds) - IV Zofran PRN for nausea Hx of HTN - Continue to monitor blood pressure per unit protocol - Maintain good pain control - Previously taking amlodipine and valsartan/HCTZ however recently tapered off and reported monitoring blood pressure closely at home DVT PPx: SCDs for now pending surgical intervention Code Status: Full code Discharge Plan: Home Plan to discharge in: Greater than 2 days - Advance Directives Does patient have a Living Will: Yes Does patient have a Durable POA for Healthcare: Yes - Code Status/Comfort Care Code Status Assessed: Yes (Full code) Critical Care: No Time Spent Managing Pts Care (In Minutes): 37
[2025-06-27] MEDS ORDERED: SUCCINYLCHOLINE 200 MG/10 ML 200 MG/10 ML SYR IV ONE (16:52)
[2025-06-27] MEDS ORDERED: LIDOCAINE 1% MPF 5 ML VIAL ONE (16:52)
[2025-06-27] MEDS ORDERED: ROCURONIUM 50 MG/5 ML VIAL IV ONE (16:52)
[2025-06-27] MEDS: PIPER TAZO 3.375 GM in NA CHLORIDE 0.9% 100 ML IV SCH (17:00)
[2025-06-27] MEDS ORDERED: GLYCOPYRROLATE 0.2 MG/ML SYR ONE (17:45)
--- NOTE | 2025-06-27 17:49 | P.OP ---
Preoperative diagnosis: LEFT Inguinal Incarcerated Hernia Postoperative diagnosis: LEFT Femoral Incarcerated Hernia Primary procedure: Open LEFT Femoral Hernia Repair with mesh Anesthesia: GETA + Local Estimated blood loss: <5cc Specimen: None Findings: LEFT Femoral hernia with incarceration of bowel, no ischemia Complications: None Implants: Bard Perfix Medium Plug, Surgicel hemostatic sheet Transferred to: Recovery Room Condition: Good
[2025-06-27] MEDS ORDERED: HYDRALAZINE HCL 20 MG/ML VIAL ONE (17:54)
[2025-06-27] MEDS: SUGAMMADEX SODIUM 200 MG/2 ML VIAL IV ONE (17:57)
[2025-06-27 19:01] VITALS: BMI 21.4
--- NOTE | 2025-06-27 19:30 | CON ---
Date of Consultation: 06/27/2025 Brief History Of Present Illness: The patient is an 80-year-old female who comes in with a 1-day his tory of significant and severe left lower quadrant abdominal pain now radiating around the remainder of the abdomen associated with nausea and global abdominal pain. This began yesterday earlier in the day and it got progressively worse. As such, she came to the emergency room with the above-stated c omplaints. During her presentation, she noted that the pain got progressively worse and attempts at reduction were unsuccessful at this time. She had a CT scan also during her admission, which showed concerning findings. Past Medical History: Significant for vaginal prolapse and left ankle injury. Past Surgical History: Includes vaginal prolapse repair, Dr. Mcneil, and left ankle surgery. Medications: None. Allergies: NO KNOWN DRUG ALLERGIES. Review of Systems: Ten-point review of systems other than HPI, denies. Social History: She denies smoking, alcohol, or recreational drug use. Physical Examination: General: At the time of my examination, she is awake, alert, and oriented. Psychiatric: Appropriate and conversive. HEENT: She is normocephalic. Sclerae anicteric. Mucous membranes moist. Oropharynx clear. Neck: Supple without JVD. Chest: Normal to expansion and excursion. Cardiovascular: Regular rate and rhythm. Pulmonary: Clear to auscultation bilaterally. Abdomen: Soft with positive left lower quadrant tenderness to palpation. Global tenderness worse in the left lower quadrant where a palpable inguinal hernia which is not reducible was palpable at this point with the knuckle of small intestine. Extremities: No clubbing, cyanosis, or edema. Skin: Warm and dry. Laboratory Data: Revealed white blood cell count 7.7, hemoglobin is 14.9, hematocrit 44.2, platelet count is 212, neutrophils are 72%. PT 13.2, INR 1.17, sodium 139, potassium 3.9, chloride 104, carbo n dioxide 27, BUN 13, creatinine 0.52, glucose is 108, calcium is 9.7, magnesium 2.1, total bilirubin 0.7, direct component was 0.2, AST 19, ALT 20, alkaline phosphatase is 68, lipase is 22. She had a CT scan performed of the abdomen and pelvis which was officially read as: 1. Small fat containing umbilical hernia. 2. Several mildly dilated and thickened small bowel loops in the left lower abdomen with small left i nguinal hernia containing a short segment of small intestine may indicate a low-grade partial bowel o bstruction caused by this hernia. Assessment And Plan: This is an 80-year-old woman who comes in with signs and symptoms of incarcerat ed left inguinal hernia with small bowel contained. 1. IV fluid hydration. 2. Antibiotic coverage. 3. I explained the risks, benefits, and alternatives of open inguinal hernia repair on the left side, including but not limited to, bleeding, infection, damage to surrounding tissue, need for further op erative procedures, trouble with mesh or implanted device, blood clots, heart attacks, strokes, recur rence of the hernia, other unforeseen complications in the perioperative period. The patient display ed understanding of the above-stated plan and agreed to proceed as indicated. GUSTABO/SOCORRO Voice ID: [id number] Report ID: [id number]
[2025-06-27] MEDS ORDERED: MORPHINE 4 MG/ML SYR IV PRN (19:41)
[2025-06-27] MEDS: HYDROCODONE/APAP 5/325 MG TAB PO PRN (20:01)
[2025-06-27] MEDS: Ringers Lactate 1,000 ML IV SCH (20:01)
[2025-06-27 20:12] VITALS: O2SAT 94
--- NOTE | 2025-06-28 04:55 | OP ---
Date of Procedure: 06/27/2025 Surgeon: Yoan Grey MD, Preoperative Diagnosis: Left inguinal incarcerated hernia. Postoperative Diagnosis: Left femoral incarcerated hernia. Procedure Performed: Open left femoral hernia repair with mesh. Anesthesia: General endotracheal plus local 1% lidocaine with epinephrine. Estimated Blood Loss: Less than 5 mL. Specimen: None. Findings: Left femoral hernia (perivascular) with incarceration of bowel, no ischemic changes, and adipose tissue. Complications: None. Implants: Bard PerFix medium plug only and Surgicel hemostatic sheet, small size utilized. Disposition: Patient transferred to recovery room in good condition. Procedure In Detail: After informed consent was obtained, the patient was brought to the operating room, prepped and draped in the usual sterile fashion. After adequate anesthesia was achieved, I made a linear incision over an obvious bulge in the left inguinal region superior to the inguinal crease. I dissected down ultimately through structures and identified a large protruding object, which appeared to be near the femoral canal. As such, I dissected it circumferentially around through fascial planes, ultimately dissecting down to a fascial defect, which was appreciated just medial to the femoral vein. At this point, I was able to dissect free the tissues, returned the bowel which was pink and peristalsing in a normal fashion, which is only a very small portion of it, Valle consistency type back in the preperitoneal space and some adipose tissue, which was entrapped with it. After placing the patient in steep Trendelenburg position, she was relaxed. The defect was reasonably sized and I did not feel that a tissue repair would adequately close this defect as it was reasonably sizable. As such, I opted to bring in a Bard PerFix plug, placed it into the space at this area and secured it to the lateral aspect and superior aspect of the fascial planes and the periosteal fascia on the pubic tubercle medially and superiorly. I did not place stitches on the femoral vein side as the femoral vein and the artery were palpable and dilated at this time, but appeared intact. There was some small oozing in the area. I chose not to use electrocautery and placed a small piece of Surgicel, trimmed appropriately and placed around this area and pressure was held until hemostasis was achieved. It was irrigated several times with sterile saline. No additional hemostatics required and I left a piece of Surgicel in place at this point. I then closed the defect over the top of this using 3-0 Vicryl suture over the fascial plane through the tissue plane, ultimately closed the deep dermal skin plane with the same said 3-0 Vicryl suture and the skin was closed with a 4-0 Monocryl in a running fashion. Dermabond was placed over top. The patient tolerated the procedure without incident or complication and transferred to PACU in good condition. All counts were correct at the end of the case. GUSTABO/SOCORRO Voice ID: [id number] Report ID: [id number] MTDD
[2025-06-28 05:44] LABS: Absolute Lymphocytes (CBC) 0.7 K/uL (0.7-4.9); Hematocrit 36.8 % (36.0-45.0); Hemoglobin 12.7 g/dL (12.0-15.0); MCH 30.4 pg (27.0-35.0); MCHC 34.4 g/dL (32.0-36.0); MCV 88.4 fL (80-100); MPV 9.6 fL (7.6-11.3); Nucleated RBC Absolute Count 0.0 (0-0); Nucleated Red Blood Cells % 0.0 % (0-0); RBC Red Blood Cell Count 4.17 M/uL (3.86-4.86); White Blood Count 9.90 thou/uL (4.3-10.9)
[2025-06-28 06:03] LABS: Albumin 2.7 g/dL (3.4-5.0); Albumin/Globulin Ratio 0.8 (1.1-1.8); Alkaline Phosphatase 49 U/L (45-117); Anion Gap 9.6 mEq/L (5.0-15.0); BUN Blood Urea Nitrogen 11 mg/dL (7-18); Globulin 3.4 g/dL (2.3-3.5); Glucose Level 128 mg/dL (74-106); Magnesium 1.8 mg/dL (1.6-2.4); Potassium 3.6 mEq/L (3.5-5.1)
[2025-06-28 06:08] LABS: ALT/SGPT < 14 U/L (13-56); AST/SGOT < 10 U/L (15-37)
[2025-06-28 08:47] VITALS: BP 120/56; TEMP 98.1
[2025-06-28] MEDS: MAGNESIUM SULFATE 1 gm IVPB 1 GM/100 ML BAG IV ONE (09:00)
[2025-06-28] MEDS: POTASSIUM CL SA 10 MEQ TAB PO ONE (09:00)
[2025-06-28 09:19] LABS: Anisocytosis 1+; Blood Morphology Comment NOTED (NOT SEEN); Hypochromasia 1+; Toxic Granulation PRESENT; White Blood Cell Scan OK (OK)
--- NOTE | 2025-06-28 10:57 | P.DS ---
Admission Date: 06/27/25 Discharge Date: 06/28/25 Disposition: ROUTINE DISCHARGE Discharge Condition: GOOD Reason for Admission: Abdominal pain/hernia Brief History of Present Illness: Patient is an 80-year-old female with past medical history of hypertension (currently controlled without medications) and pre-diabetes who presented to the ED with sharp left lower quadrant pain accompanied by nausea x 1 day. Patient reported that as she was walking around at home she felt sudden sharp pains in her stomach and when she went to sit down it did not go away. ED workup included CT abdomen pelvis with contrast which showed several mildly dilated and thickened small bowel loops in the left lower quadrant with small left inguinal hernia containing a short segment of small intestine. This may indicate low- grade partial small bowel obstruction caused by this hernia. Surgery was consulted and patient was admitted for surgical intervention of hernia Hospital Course: Abdomninal Pain Hernia - CT abdomen/pelvis: Several mildly dilated and thickened small bowel loops in the left lower quadrant with small left inguinal hernia containing a short segment of small intestine. This may indicate low- grade partial small bowel obstruction caused by this hernia. - Received IV fluids, Zosyn and Zofran while inpatient - Surgeon Dr. Sellers completed open LEFT Femoral Hernia Repair with mesh - Passed flatulence and tolerating regular diet prior to discharge. Continue regular diet at home - Continue ASA 81mg daily at home, per recs of surgeon and post operative follow up within 2-3days Hx of HTN - Continue to monitor blood pressure at home - Previously taking amlodipine and valsartan/HCTZ however recently tapered off and reported monitoring blood pressure closely at home - Follow up with PCP Vital Signs/Physical Exam: Temp Pulse Resp BP Pulse Ox 98.1 F 75 12 120/56 L 95 06/28/25 08:00 06/28/25 08:00 06/28/25 08:00 06/28/25 08:00 06/28/25 08:00 General: Alert, In no apparent distress HEENT: Atraumatic, PERRLA, EOMI Neck: Supple, JVD not distended Respiratory: Clear to auscultation bilaterally, Normal air movement Cardiovascular: Regular rate/rhythm, Normal S1 S2 Capillary refill: <2 Seconds Gastrointestinal: Normal bowel sounds, Tenderness (mild to surgical site. No s/s of infection) Musculoskeletal: No tenderness Integumentary: No rashes Neurological: Normal speech, Normal tone, Normal affect External genitalia: Deferred Rectal: Deferred Laboratory Data at Discharge: WBC 9.90 thou/uL (4.3-10.9) 06/28/25 04:44 Hgb 12.7 g/dL (12.0-15.0) D 06/28/25 04:44 Hct 36.8 % (36.0-45.0) 06/28/25 04:44 Plt Count 182 thou/uL (152-406) 06/28/25 04:44 PT 13.2 SECONDS (10-13.0) H 06/27/25 12:47 INR 1.17 06/27/25 12:47 Sodium 138 mEq/L (136-145) 06/28/25 04:44 Potassium 3.6 mEq/L (3.5-5.1) 06/28/25 04:44 BUN 11 mg/dL (7-18) 06/28/25 04:44 Creatinine 0.49 mg/dL (0.55-1.02) L 06/28/25 04:44 Glucose 128 mg/dL (74-106) H 06/28/25 04:44 Magnesium 1.8 mg/dL (1.6-2.4) 06/28/25 04:44 Total Bilirubin 0.8 mg/dL (0.2-1.0) 06/28/25 04:44 AST < 10 U/L (15-37) L 06/28/25 04:44 ALT < 14 U/L (13-56) 06/28/25 04:44 Alkaline Phosphatase 49 U/L (45-117) D 06/28/25 04:44 Lipase 22 U/L (13-75) 06/27/25 12:47 Home Medications: Aspirin Chewable [Aspirin Chewable*] 81 mg PO DAILY #30 tab 06/28/25 New Medications: Aspirin Chewable [Aspirin Chewable*] 81 mg PO DAILY #30 tab Physician Discharge Instructions: Follow-up with within 2-3 days. Continue aspirin 81 mg daily until re-evaluated by surgeon. Monitor for any postoperative signs and symptoms of infection, to include fever, redness/drainage/severe pain to surgical site. Diet: Regular Activity: Ad rosa Followup: NONE,NONE [Primary Care Provider] - Yoan Grey MD [ACTIVE - CAN ADMIT] -
--- NOTE | 2025-06-28 10:57 | P.PN ---
Subjective Date of Service: 06/28/25 Chief Complaint: Abdominal pain/hernia Subjective: Improving (Patient states she has no nausea vomiting tolerated diet without issue. She has no leg swelling or pain in her groin area.) Physical Examination - Vital Signs Temperature: 98.1 F Blood Pressure: 120/56 Pulse: 75 Respirations: 12 Pulse Ox (%): 95 - Physical Exam General: Alert, In no apparent distress, Cooperative Gastrointestinal: Other (Soft, mild appropriate left groin tenderness to palpation no rebound or guarding no focal peritonitis no collections. No evidence of hernia recurrence. Minimal bruising to the areas noted.) Musculoskeletal: Other (Patient has no swelling in her bilateral lower extremities no edema no vascular compromise no pain no neurologic complaints.) - Studies Laboratory Data (last 24 hrs) 06/27/25 06/27/25 06/27/25 12:47 12:47 12:47 WBC 7.70 Hgb 14.9 Hct 44.2 Plt Count 212 PT 13.2 H INR 1.17 Sodium 139 Potassium 3.9 BUN 13 Creatinine 0.52 L Glucose 108 H Magnesium 2.1 Total Bilirubin 0.7 AST 19 ALT 20 Alkaline Phosphatase 68 Lipase 22 Assessment And Plan - Plan Patient is an 80-year-old woman who comes in with a suspected inguinal hernia and in fact however she had a perivascular left femoral hernia with sizable defect repaired on 06/27/2025 with a plug mesh. - Patient feels significant symptomatic resolution. At this time -I have explained postop instructions to patient regarding lifting. - I have recommended patient maintain an 81 mg aspirin for at least 6 weeks after surgery - Follow-up in my office per previous recommendations. - All post obstructions with respect to lifestyle modification diet lifting restrictions wound care showering reviewed with patient.
[2025-06-28] MEDS: ASPIRIN 81 MG CHEWABLE TABLET PO SCH (11:51)
[2025-06-28] MEDS ORDERED: ENOXAPARIN 40 MG/0.4 ML SQ SCH (17:00)
== END 2025-06-28 12:15 | disposition home or self-care (01) | DRG 352 ==
LOC: ER 11:59 → 2ND 16:22
PROVIDERS: ADMIT Internal Medicine; ATTEND Hospitalist
PROC: 0YU80JZ Supplement Left Femoral Region with Synthetic Substitute, Open Approach (ICD-10-PCS; principal; 2025-06-27 17:00)
DX: K41.30 Unilateral femoral hernia, with obstruction, without gangrene, not specified as recurrent (principal); I10 Essential (primary) hypertension; Z79.899 Other long term (current) drug therapy
CPT/HCPCS: 36415; 71045; 74177; 80048; 80053; 80076; 81001; 83690; 83735; 83880; 84484; 85025; 85610; 93005; 96361; 96365; 96375; 99285; J0330; J0360; J1100; J2003; J2405; J2543; J2704; J3010; J7030; J7040; J7120; Q9967